=== PATIENT | female | born 1935 | race Caucasian/White ===

== ENCOUNTER 2016-10-08 03:22 | Emergency (ER) | payer OTHER ==
[~2016-10-08 03:22] MED LIST: *UNABLE1; AMITIZA24 PO; ASAB PO; ATV.5 PO; BRILINTA90 MG PO; CAT2 PO; CIP5 PO; CORDARONE PO; COREG6 PO; COZAAR100 MG PO; HYZAAR 100/25 T1 TAB PO; IMDUR30 PO; KDUR10 PO; KLOR-CON 1010 MEQ PO; LIPITOR40 PO; LOP25 PO; NITROSTAT0.4 MG SL; NORV25 PO; NORV5 PO; NTG150 SL; P5 PO; PACERONE200 MG PO; PLAVIX PO; PREDNISONE2.5 MG PO; PRILO PO; PROMEGA PO; PROTONIX PO; SPIRO25 PO; TOPXL50 PO; ULTRAM50 PO
== END 2016-10-08 03:25 | disposition home or self-care (01) ==
LOC: ER 03:22
DX: B02.9 Zoster without complications (principal); I10 Essential (primary) hypertension; I25.2 Old myocardial infarction; Z95.1 Presence of aortocoronary bypass graft; Z95.0 Presence of cardiac pacemaker; Z88.8 Allergy status to other drugs, medicaments and biological substances; Z79.82 Long term (current) use of aspirin; Z79.52 Long term (current) use of systemic steroids; Z79.899 Other long term (current) drug therapy
CPT/HCPCS: 93005; 99285; A9270-GY